=== PATIENT | male | born 1985 | race Caucasian/White ===

== ENCOUNTER 2016-11-19 21:18 | Emergency (ER) | payer SELFPAY ==
[2016-11-19 21:37] VITALS: BP 132/58
[2016-11-19] MEDS ORDERED: Tetan/Diph/Pertus SYR(Tdap)* 0.5 ML SYR(BOOSTRIX) use SYR IM ONE (22:20)
[2016-11-19] MEDS ORDERED: Ciprofloxacin TAB* 500 MG PO ONE (22:20)
--- NOTE | 2016-11-19 22:27 | ED ---
Lower Extremity - HPI Summary HPI Summary: 31 yr old male with puncture wound to right lateral heel. He states he stepped on a 16 brandon nail that was in an old concrete form today at work. It was ghanshyam. He had [place] work boots on. He doesn't think anything broke off. He has no other complaints today. Pain is moderate 6/10. - History of Current Complaint Chief Complaint: UCGeneralIllness Stated Complaint: STEPPED ON A NAIL-WC Time Seen by Provider: 11/19/16 22:16 - Allergies/Home Medications Allergies/Adverse Reactions: Allergies Allergy/AdvReac Type Severity Reaction Status Date / Time No Known Allergies Allergy Verified 11/19/16 21:30 PMH/Surg Hx/FS Hx/Imm Hx Previously Healthy: Yes Infectious Disease History: No Infectious Disease History: Denies: Traveled Outside the [place] in Last 30 Days - Family History Known Family History: Positive: None - Social History Alcohol Use: Occasionally Substance Use Type: Reports: None Smoking Status (MU): Current Every Day Smoker Type: Cigarettes Amount Used/How Often: 1 ppd Review of Systems Constitutional: Negative Eyes: Negative ENT: Negative Cardiovascular: Negative Musculoskeletal: Other - heel pain from puncture wound Neurological: Negative Psychological: Normal All Other Systems Reviewed And Are Negative: Yes Physical Exam Triage Information Reviewed: Yes Vital Signs On Initial Exam: Initial Vitals Temp Pulse Resp BP Pulse Ox 99 F 88 18 132/58 96 11/19/16 21:30 11/19/16 21:30 11/19/16 21:30 11/19/16 21:30 11/19/16 21:30 Vital Signs Reviewed: Yes Appearance: Positive: Well-Appearing Skin: Positive: Other - puncture wound right lateral heel that has no obvious FB. wound cleaned. Neck: Positive: Supple Respiratory/Lung Sounds: Positive: Clear to Auscultation, Breath Sounds Present Cardiovascular: Positive: Normal, RRR Musculoskeletal: Positive: Other - right lateral heel with small puncture wound , not bleeding at this time. No FB. DP and PT pulses intact. Diagnostics - Vital Signs Vital Signs Temp Pulse Resp BP Pulse Ox 11/19/16 21:30 99 F 88 18 132/58 96 - Laboratory Lab Statement: Any lab studies that have been ordered have been reviewed, and results considered in the medical decision making process. Lower Extremity Course/Dx - Course Course Of Treatment: 31 yr old with puncture to right heel. Wound cleaned. I have discussed the possibility of foreign body still in the pucture wound. He is getting tetanus prophylaxis. He will be put on Cipro. He will be discharged to follow up with orthopedics, Dr Cox at [facility] for close follow up. The possibility of infection was discussed with the patient. - Diagnoses Provider Diagnoses: Puncture wound of heel Discharge - Discharge Plan Condition: Good Disposition: HOME Prescriptions: Ciprofloxacin HCl [Cipro 500 MG TAB] 500 mg PO BID #10 tab Patient Education Materials: Puncture Wound (ED), Osteochondroma (GEN) Forms: *Work Release Referrals: No Primary Care Phys,NOPCP [Primary Care Provider] - Jarred Cox MD [Medical Doctor] -
--- NOTE | 2016-11-19 22:51 | RAD ---
INDICATION: Puncture wound from nail. TECHNIQUE: 3 views of the right foot were obtained. FINDINGS: The bones are in normal alignment. No fracture or radiopaque foreign body is seen. There is a small osteochondral defect present along the articular surface of the distal first metatarsal measuring 5 mm in diameter. IMPRESSION: 1. NO EVIDENCE FOR RADIOPAQUE FOREIGN BODY. 2. SMALL OSTEOCHONDRAL LESION FIRST METATARSAL HEAD.
== END 2016-11-19 22:57 | disposition home or self-care (01) ==
LOC: UCCORT 21:18
DX: S91.331A Puncture wound without foreign body, right foot, initial encounter (principal); W45.0XXA Nail entering through skin, initial encounter; Y93.9 Activity, unspecified; Y92.89 Other specified places as the place of occurrence of the external cause; Y99.0 Civilian activity done for income or pay; Z23 Encounter for immunization; F17.210 Nicotine dependence, cigarettes, uncomplicated
CPT/HCPCS: 90471; 90715; 99202; A9270-GY; G0463

== ENCOUNTER 2017-10-30 09:57 | Emergency (ER) | payer SELFPAY ==
[2017-10-30 10:45] VITALS: BP 139/69
--- NOTE | 2017-10-30 11:07 | UC ---
Back Pain HPI - HPI Summary HPI Summary: Pt c/o sudden onset of mid back pain after lifting 20LB bumper at work. 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 - History of Current Complaint Chief Complaint: UCBackPain Stated Complaint: MID/LOW BACK PAIN Time Seen by Provider: 10/30/17 10:51 Hx Obtained From: Patient Onset/Duration: Sudden Onset, Still Present Timing: Constant Severity Initially: Moderate Severity Currently: Mild Pain Intensity: 9 Back Pain: Is Discrete @ Character: Dull, Aching, Spasmodic, Stiffness Aggravating Factor(s): Movement, Lifting Alleviating Factor(s): Rest, Position Associated Signs And Symptoms: Positive: Negative - Risk Factors AAA Risk Factors: Negative TAD Risk Factors: Negative Cauda Equina Risk Factors: Negative Epidural Abscess Risk Factors: Negative - Allergies/Home Medications Allergies/Adverse Reactions: Allergies Allergy/AdvReac Type Severity Reaction Status Date / Time No Known Allergies Allergy Verified 10/30/17 10:38 PMH/Surg Hx/FS Hx/Imm Hx Previously Healthy: Yes - Surgical History Surgical History: None - Family History Known Family History: Positive: Cardiac Disease - Social History Occupation: Employed Full-time Lives: With Family Alcohol Use: None Substance Use Type: None Smoking Status (MU): Current Every Day Smoker Type: Cigarettes, Smokeless Tobacco Amount Used/How Often: 1 PACK/WEEK Have You Smoked in the Last Year: Yes - Immunization History Most Recent Influenza Vaccination: None Most Recent Tetanus Shot: Unsure Most Recent Pneumonia Vaccination: N/A Review of Systems Constitutional: Negative Skin: Negative Eyes: Negative ENT: Negative Respiratory: Negative Cardiovascular: Negative Gastrointestinal: Negative Genitourinary: Negative Motor: Negative Neurovascular: Negative Musculoskeletal: Arthralgia - mid back, Myalgia Neurological: Negative Psychological: Negative Is Patient Immunocompromised?: No All Other Systems Reviewed And Are Negative: Yes Physical Exam Triage Information Reviewed: Yes Appearance: Well-Appearing Vital Signs: Initial Vital Signs Temp 97.8 F 10/30/17 10:39 Pulse 86 10/30/17 10:39 Resp 16 10/30/17 10:39 BP 139/69 10/30/17 10:39 Pulse Ox 98 10/30/17 10:39 Vital Signs Reviewed: Yes Eye Exam: Normal ENT Exam: Normal Dental Exam: Normal Neck exam: Normal Respiratory Exam: Normal Cardiovascular Exam: Normal Musculoskeletal Exam: Other Musculoskeletal: Positive: Other: - tenderness with palpation at T 7-9 Neurological Exam: Normal Psychological Exam: Normal Skin Exam: Normal Back Pain Course/Dx - Differential Dx/Diagnosis Differential Diagnosis/HQI/PQRI: Herniated Disc, Strain, Sprain Provider Diagnoses: back strain Discharge - Sign-Out/Discharge Documenting (check all that apply): Discharge - Discharge Plan Condition: Stable Disposition: HOME Prescriptions: Cyclobenzaprine TAB* [Flexeril 10 MG TAB*] 10 mg PO TID PRN #15 tab PRN Reason: Pain Ibuprofen TAB* [Motrin TAB* 800 MG] 800 mg PO Q8H PRN #21 tab PRN Reason: Pain Patient Education Materials: Acute Low Back Pain (ED), Core Strengthening Exercises (GEN), Ice Pack Application (ED), Cyst (ED) Forms: *Work Release Referrals: KARLI Hatch [Medical Doctor] - Waldemar La DO [Doctor of Osteopathy] - No Primary Care Phys,NOPCP [Primary Care Provider] - Additional Instructions: Please establish care with a PCP as soon as possible. - Billing Disposition and Condition Condition: STABLE Disposition: HOME
== END 2017-10-30 11:17 | disposition home or self-care (01) ==
LOC: UCCORT 09:57
DX: S29.012A Strain of muscle and tendon of back wall of thorax, initial encounter (principal); X50.0XXA Overexertion from strenuous movement or load, initial encounter; Y93.89 Activity, other specified; Y92.89 Other specified places as the place of occurrence of the external cause; F17.210 Nicotine dependence, cigarettes, uncomplicated
CPT/HCPCS: 99212; G0463